=== PATIENT | male | born 1960 | race Caucasian/White ===

== ENCOUNTER 2023-08-14 14:52 | Emergency (ER) | payer MEDICAID ==
[~2023-08-14] VITALS: Ht 185.4 cm; Wt 95.2 kg
[2023-08-14 15:25] LABS: BASOPHILS ABSOLUTE AUTO 0.17 K/mm3 (0.00-0.23); BASOPHILS PERCENT AUTO 2 % (0-2); EOSINOPHILS ABSOLUTE AUTO 0.21 K/mm3 (0.00-0.68); EOSINOPHILS PERCENT AUTO 3 % (0-6); Hematocrit 39.3 % (37.0-53.0); Hemoglobin 12.6 g/dL (13.5-17.5); IMMATURE GRAN ABSOLUTE AUTO 0.02 K/mm3 (0.00-0.10); IMMATURE GRAN PERCENT AUTO 0 % (0-1); LYMPHOCYTES ABSOLUTE AUTO 1.29 K/mm3 (0.84-5.20); LYMPHOCYTES PERCENT AUTO 19 % (21-46); MONOCYTES ABSOLUTE AUTO 0.85 K/mm3 (0.16-1.47); MONOCYTES PERCENT AUTO 12 % (4-13); Mean Corpuscular HGB 29.2 pg (26.0-34.0); Mean Corpuscular HGB Conc 32.1 g/dL (31.5-36.5); Mean Corpuscular Volume 91 fL (80-100); Mean Platelet Volume 10.2 fL (9.1-12.4); NEUTROPHILS ABSOLUTE AUTO 4.42 K/mm3 (1.96-9.15); NEUTROPHILS PERCENT AUTO 64 % (41-73); Platelet Count 218 K/mm3 (150-400); RDW Coefficient Variation 18.3 % (11.7-14.2); RDW Standard Deviation 59.9 fL (35.1-46.3); Red Blood Cell Count 4.31 M/mm3 (4.30-5.90); White Blood Cell Count 6.96 K/mm3 (4.00-11.30)
[2023-08-14] MEDS ORDERED: MIDO5 PO (15:30)
[2023-08-14] MEDS ORDERED: ELIQUIS5 M2 PO (15:30)
[2023-08-14] MEDS ORDERED: HYDPAM25 PO (15:30)
[2023-08-14] MEDS ORDERED: TORSE20 PO (15:30)
[2023-08-14] MEDS ORDERED: ALBU90OI INH (15:31)
[2023-08-14 15:51] LABS: Albumin, Blood 3.3 g/dL (3.4-5.0); Albumin/Globulin Ratio 0.6 (0.8-1.8); Bilirubin, Total 1.8 mg/dL (0.1-1.0); Bun/Creatinine Ratio 24.4 (12.0-20.0); Calcium, Blood 8.8 mg/dL (8.5-10.1); Creatinine, Blood 1.56 mg/dL (0.60-1.20); Globulin, Blood 5.2 g/dL (2.2-4.0); Potassium, Blood 3.9 mmol/L (3.5-5.5); Total Protein, Blood 8.5 g/dL (6.4-8.2)
[2023-08-14 16:39] LABS: Influenza A, PCR NEGATIVE (NEGATIVE); Influenza B, PCR NEGATIVE (NEGATIVE); Resp Syncytial Virus, PCR NEGATIVE (NEGATIVE); SARS-Cov-2 (COVID-19) PCR, MMC NEGATIVE (NEGATIVE)
== END 2023-08-14 21:11 | disposition home or self-care (01) ==
LOC: ER 14:52
PROVIDERS: Emergency Medicine; Student in an Organized Health Care Education/Training Program
DX: I50.9 Heart failure, unspecified (principal); R05.9 Cough, unspecified; D72.829 Elevated white blood cell count, unspecified; D64.9 Anemia, unspecified; C81.90 Hodgkin lymphoma, unspecified, unspecified site; I25.2 Old myocardial infarction; I69.928 Other speech and language deficits following unspecified cerebrovascular disease; Z79.899 Other long term (current) drug therapy; Z79.01 Long term (current) use of anticoagulants; Z20.822 Contact with and (suspected) exposure to COVID-19
CPT/HCPCS: 0241U; 71046; 80053; 83880; 84484; 85025; 93005; 93010; 96374; 99285-25; J1940